=== PATIENT | male | born 1965 | race Caucasian/White ===

== ENCOUNTER 2023-12-13 11:01 | Inpatient (IN) ==
[~2023-12-13 11:01] MED LIST: Heparin 1,000 UNIT/ML 10 ml (10,000 UNITS) CATHLAB/DIALYSIS ONE; Heparin 2 UNITS/ML 1000 mls 2,000 ML IV ONE; Iohexol 350 (CONTRAST) 200 ML MDV IV ONE; Lidocaine 1% MPF 5 ML VIAL ONE; Midazolam 5 mg/5 ml VIAL 1 mg/ml 5 ml VIAL (5 mg) ONE; VERAPAMIL 2.5 MG/ML 2 ML VIAL ** 5 mg/2 ml ONE; fentaNYL 100 mcg/2 ml 50 MCG/ML VIAL ONE; nitroGLYCERIN DRIP 25,000 MCG/250 ML BTL ONE
[2023-12-13] MEDS ORDERED: fentaNYL 100 mcg/2 ml 50 MCG/ML VIAL ONE (11:11)
[2023-12-13] MEDS ORDERED: Iohexol 350 (CONTRAST) 100 ML PAK IV ONE (11:12)
[2023-12-13 11:23] LABS: ABS Eosinophils 0.1 10^3/uL (0.0-0.5); ABS Lymphocytes 1.1 10^3/uL (1.0-4.8); ABS Monocytes 0.5 10^3/uL (0.0-1.1); ABS Neutrophils 5.4 10^3/uL (1.5-7.6); ABS Nucleated RBC 0.01 10^3/ul; Eosinophil % 0.8 %; Hematocrit 37.8 % (38-53); Hemoglobin 12.8 g/dL (13.2-16.3); Lymphocyte % 15.8 %; Mean Corpuscular Hemoglobin 30.1 pg (27-33); Mean Corpuscular Hgb Conc 33.8 g/dL (31-36); Mean Corpuscular Volume 89.2 fL (80-97); Mean Platelet Volume 8.1 fL (7.5-11.2); Nucleated Red Blood Cells % 0.1 %/100WBC (0.0-0.8); Platelet Count 171 10^3/uL (150-450); Red Blood Count 4.24 10^6/uL (4.06-5.63); Red Cell Distribution Width 13.3 % (12-17); White Blood Count 7.1 10^3/uL (3.6-10.2)
[2023-12-13] MEDS ORDERED: Bivalirudin 250 MG VIAL ONE (11:35)
[2023-12-13] MEDS ORDERED: Atropine 0.1 MG/ML 10 ml SYR (1 mg) ONE ×2 (11:42)
[2023-12-13 11:48] LABS: INR 1.07 (0.83-1.13)
[2023-12-13 11:50] LABS: Activated Partial Thrombo Time 141.5 seconds (26.0-38.0)
[2023-12-13] MEDS ORDERED: Phenylephrine 40 mcg/mL 10mL (400mcg) SYRINGE ONE (12:16)
[2023-12-13 12:46] LABS: Albumin 3.9 g/dL (3.2-5.2); Albumin/Globulin Ratio 1.9 (1-3); Calcium 8.3 mg/dL (8.6-10.3); Creatinine, Serum 1.06 mg/dL (0.67-1.17); Globulin 2.1 g/dL (2-4); Magnesium 1.9 mg/dL (1.9-2.7); Potassium 3.9 mmol/L (3.5-5.0); Total Bilirubin 0.5 mg/dL (0.2-1.0); eGFR CKD-EPI 81.9 (>60)
[2023-12-13] MEDS: NS 0.9% 1000 ml BAG 1,000 ML IV SCH (13:11)
[2023-12-13] MEDS ORDERED: Sulfur Hexaflouride MICROSPHR 25 MG VIAL ONE (14:13)
[2023-12-13] MEDS: Magnesium Sulfate 2 gm BAG 2 GM/50 ML BAG IVPB ONE (16:37)
[2023-12-14 04:30] LABS: ABS Eosinophils 0.1 10^3/uL (0.0-0.5); ABS Lymphocytes 0.9 10^3/uL (1.0-4.8); ABS Monocytes 0.7 10^3/uL (0.0-1.1); ABS Neutrophils 6.2 10^3/uL (1.5-7.6); Eosinophil % 1.7 %; Hematocrit 37.8 % (38-53); Hemoglobin 12.7 g/dL (13.2-16.3); Lymphocyte % 11.3 %; Mean Corpuscular Hgb Conc 33.7 g/dL (31-36); Mean Corpuscular Volume 89.2 fL (80-97); Mean Platelet Volume 8.4 fL (7.5-11.2); Platelet Count 173 10^3/uL (150-450); Red Blood Count 4.24 10^6/uL (4.06-5.63); Red Cell Distribution Width 13.4 % (12-17); White Blood Count 7.9 10^3/uL (3.6-10.2)
[2023-12-14 05:32] LABS: Albumin 3.7 g/dL (3.2-5.2); Albumin/Globulin Ratio 1.6 (1-3); Calcium 8.3 mg/dL (8.6-10.3); Globulin 2.3 g/dL (2-4); HDL Cholesterol 43.7 mg/dL; Magnesium 2.3 mg/dL (1.9-2.7); Potassium 4.2 mmol/L (3.5-5.0); Total Bilirubin 0.8 mg/dL (0.2-1.0); eGFR CKD-EPI 87.8 (>60)
[2023-12-15 04:51] LABS: ABS Eosinophils 0.3 10^3/uL (0.0-0.5); ABS Lymphocytes 1.5 10^3/uL (1.0-4.8); ABS Monocytes 0.7 10^3/uL (0.0-1.1); ABS Neutrophils 4.7 10^3/uL (1.5-7.6); Eosinophil % 3.7 %; Hematocrit 40.7 % (38-53); Hemoglobin 13.9 g/dL (13.2-16.3); Lymphocyte % 20.5 %; Mean Corpuscular Hemoglobin 30.3 pg (27-33); Mean Corpuscular Hgb Conc 34.2 g/dL (31-36); Mean Corpuscular Volume 88.8 fL (80-97); Mean Platelet Volume 8.3 fL (7.5-11.2); Platelet Count 184 10^3/uL (150-450); Red Blood Count 4.59 10^6/uL (4.06-5.63); Red Cell Distribution Width 13.5 % (12-17); White Blood Count 7.2 10^3/uL (3.6-10.2)
[2023-12-15 05:30] LABS: Calcium 9.1 mg/dL (8.6-10.3); Creatinine, Serum 1.03 mg/dL (0.67-1.17); Potassium 4.2 mmol/L (3.5-5.0); eGFR CKD-EPI 84.7 (>60)
[2023-12-15 09:53] VITALS: BP 103/72
== END 2023-12-15 11:20 | disposition home or self-care (01) | DRG 174 ==
LOC: ED 11:01 → CHICATH 11:17 → ICU 12:25
PROVIDERS: ADMIT Emergency Medicine; ATTEND Internal Medicine Pulmonary Disease